=== PATIENT | female | born 1955 | race Asian ===

== ENCOUNTER 2016-12-30 04:02 | Inpatient (IN) | payer SELFPAY ==
[~2016-12-30] VITALS: Ht 149.9 cm; Wt 59.8 kg
[~2016-12-30 04:02] MED LIST: ALBU8.5H3 INH
[2016-12-30 04:47] LABS: BLOOD UREA NITROGEN 9 mg/dL (7-18)
[2016-12-30] MEDS ORDERED: LISI5TAB7 PO ×2 (04:48→10:16)
[2016-12-30 04:57] LABS: IS PT STATUS REG ER OR PRE ER? YES
[2016-12-30] MEDS ORDERED: NITROGLYCERIN SINGLE TAB 0.4 MG SL PRN (05:00)
[2016-12-30] MEDS ORDERED: BISACODYL 10 MG SUPP PR PRN (06:00)
[2016-12-30] MEDS ORDERED: HEPARIN 5,000 UNITS/ML, 1ML SQ SCH (06:00)
[2016-12-30] MEDS ORDERED: hydrALAzine 20 MG/ML, 1ML IVPush PRN (06:00)
[2016-12-30] MEDS ORDERED: ACETAMINOPHEN 325 MG TABLET PO PRN (06:00)
[2016-12-30] MEDS ORDERED: ENALAPRILAT 1.25 MG/ML, 2ML IVPush PRN (06:00)
[2016-12-30] MEDS ORDERED: LISINOPRIL 20 MG TABLET PO SCH ×2 (06:00→09:00)
[2016-12-30] MEDS ORDERED: DOCUSATE 100 MG CAPSULE PO PRN (06:00)
[2016-12-30] MEDS ORDERED: POLYETHYLENE GLYCOL 17 GM PACKET PO PRN (06:00)
[2016-12-30] MEDS ORDERED: ONDANSETRON 2MG/ML, 2ML IVPush PRN (06:00)
[2016-12-30] MEDS ORDERED: morphine SULFATE 10 MG/ML, 1ML IVPush PRN (06:00)
[2016-12-30] MEDS ORDERED: NICOTINE 7 MG/24 HR PATCH.TD24 TD SCH (06:00)
[2016-12-30 06:36] VITALS: BP 168/90
[2016-12-30 06:39] VITALS: BP 168/90
[2016-12-30 07:30] VITALS: BP 167/81
[2016-12-30] MEDS: ALBUTEROL SULFATE 2.5 MG/3 ML NPPB SCH ×2 (08:09→09:51)
[2016-12-30 09:04] LABS: IS PT STATUS REG ER OR PRE ER? NO
[2016-12-30] MEDS ORDERED: ALBU8.5H3 INH (10:16)
[2016-12-30] MEDS ORDERED: PRED20TA PO (10:22)
== END 2016-12-30 11:16 | disposition home or self-care (01) | DRG 305 ==
LOC: ED 05:17 → EDIP 05:47 → 4WST 06:24
PROVIDERS: ADMIT Internal Medicine; ATTEND Internal Medicine
DX: I16.0 Hypertensive urgency (principal); J45.901 Unspecified asthma with (acute) exacerbation; I10 Essential (primary) hypertension; F17.210 Nicotine dependence, cigarettes, uncomplicated; Z91.14 Patient's other noncompliance with medication regimen; Z82.5 Family history of asthma and other chronic lower respiratory diseases; Z88.5 Allergy status to narcotic agent; Z79.899 Other long term (current) drug therapy; Z71.6 Tobacco abuse counseling
CPT/HCPCS: 36415; 71010; 80048; 82040; 83036; 83735; 83880; 84439; 84443; 84484; 85025; 93005; 94640; J7613; J7512